=== PATIENT | female | born 1980 | race Hispanic/Latino ===

== ENCOUNTER 2018-08-15 15:31 | Outpatient (CLI) | payer BC ==
--- NOTE | 2018-08-15 16:09 | MMO ---
Bilateral MAMMO Bilat Screen [facility]. CLINICAL HISTORY: Patient is 38 years old and is seen for screening. The patient has no family history of breast cancer. The patient has no personal history of cancer. VIEWS: The views performed were: bilateral craniocaudal with tomosynthesis; bilateral mediolateral oblique with tomosynthesis; and left exaggerated craniocaudal. MAMMOGRAM FINDINGS: The breasts are heterogeneously dense, which could obscure a lesion on mammography. There are no suspicious masses, suspicious calcifications, or new areas of architectural distortion. IMPRESSION: THERE IS NO MAMMOGRAPHIC EVIDENCE OF MALIGNANCY. A ROUTINE FOLLOW-UP MAMMOGRAM IN 1 YEAR IS RECOMMENDED. THE RESULTS OF THIS EXAM WERE SENT TO THE PATIENT. ACR BI-RADS Category 1 - Negative MAMMOGRAPHY NOTE: 1. A negative mammogram report should not delay a biopsy if a dominant of clinically suspicious mass is present. 2. Approximately 10% to 15% of breast cancers are not detected by mammography. 3. Adenosis and dense breasts may obscure an underlying neoplasm.
== END 2018-08-15 15:32 | disposition home or self-care (01) ==
LOC: BICMAMMO 15:31
PROVIDERS: ATTEND Physician Assistant
DX: Z12.31 Encounter for screening mammogram for malignant neoplasm of breast (principal)
CPT/HCPCS: 77063; 77067

== ENCOUNTER 2020-10-02 09:01 | Outpatient (CLI) | payer BC | END 2020-10-02 09:02 | disposition home or self-care (01) | LOC: BICMAMMO 09:01 | PROVIDERS: ATTEND Physician Assistant | DX: Z12.31 Encounter for screening mammogram for malignant neoplasm of breast (principal) | CPT/HCPCS: 77063; 77067 ==

== ENCOUNTER 2020-12-27 08:17 | Inpatient (IN) | payer BC ==
[2020-12-27] MEDS ORDERED: Ondansetron PF 4 MG/2 ML Vial ONE (08:50)
[2020-12-27] MEDS ORDERED: Fentanyl 100 MCG/2 ML VIAL ONE (08:50)
[2020-12-27 09:32] LABS: #Basophils 0.1 thou/uL (0.0-0.2); #Eosinphils 0.1 thou/uL (0.0-0.7); #Lymphocytes 3.1 thou/uL (1.20-3.40); #Monocytes 0.8 thou/uL (0.11-0.59); #Neutrophils 6.3 thou/uL (1.40-6.50); %Basophils 0.9 % (0.0-1.0); %Eosinophils 0.8 % (0.0-10.0); %Lymphocytes 29.7 % (21.0-51.0); %Monocytes 7.3 % (0.0-10.0); %Neutrophils 61.4 % (42.0-75.0); Hemoglobin 14.1 g/dL (12.0-16.0); Mean Corpuscular HGB CONC 33.4 g/dL (32.0-36.0); Mean Corpuscular Hemoglobin 28.6 pg (27.0-31.0); Mean Corpuscular Volume 85.6 fL (78.0-98.0); Mean Platelet Volume 7.8 fL (7.4-10.4); Platelet Count 403 thou/uL (130-400); RBC Distribution Width 13.9 % (11.5-14.5); Red Blood Cell (RBC) Count 4.91 mill/uL (4.20-5.40); White Blood Cell (WBC) Count 10.3 thou/uL (4.8-10.8)
[2020-12-27 09:51] LABS: ALT (SGPT) 304 U/L (8-55); AST (SGOT) 233 U/L (5-34); Albumin 3.9 g/dL (3.5-5.0); Alkaline Phosphatase 356 U/L (40-110); Anion Gap 13 mmol/L (10-20); BUN (Urea Nitrogen) 9 mg/dL (7.0-18.7); Bilirubin, Total 1.9 mg/dL (0.2-1.2); Calc. Creatinine Clearance 0 mL/min (70-130); Calcium 8.9 mg/dL (7.8-10.44); Carbon Dioxide 21 mmol/L (22-29); Chloride 107 mmol/L (98-107); Globulin 3.3 g/dL (2.4-3.5); Glucose 122 mg/dL (70-105); Potassium 4.2 mmol/L (3.5-5.1); Protein, Total 7.2 g/dL (6.0-8.3); Sodium 137 mmol/L (136-145)
[2020-12-27] MEDS ORDERED: Morphine 4 MG/ML VIAL ONE ×2 (14:29→19:59)
[2020-12-27] MEDS ORDERED: diphenhydrAMINE 50 MG/ML VIAL ONE (19:06)
[2020-12-27] MEDS ORDERED: diphenhydrAMINE 50 MG/ML VIAL IVP PRN (19:38)
[2020-12-27] MEDS ORDERED: Morphine 4 MG/ML VIAL SLOW IVP PRN (21:40)
[2020-12-27] MEDS ORDERED: Morphine 2 MG/ML VIAL SLOW IVP PRN (21:40)
[2020-12-27] MEDS ORDERED: Ondansetron PF 4 MG/2 ML Vial IVP PRN (21:41)
[2020-12-27] MEDS ORDERED: Sodium Chloride 0.9% (PF) 10 ML VIAL FS PRN (21:45)
[2020-12-27] MEDS ORDERED: Piperacillin/Tazobactam 3.375 GM in Sodium Chloride 0.9% 100 ML IVPB SCH (22:00)
[2020-12-28] MEDS: D5 1/2 NS w/20 mEq KCL 1,000 ML IV SCH ×5 (00:11→19:17)
[2020-12-28] MEDS ORDERED: Piperacillin/Tazobactam 3.375 GM VIAL ONE (02:49)
[2020-12-28] MEDS ORDERED: EPINEPHrine 1 MG/ML AMP ONE (07:00)
[2020-12-28] MEDS ORDERED: Iothalamate Meglumine 60% 50 ML VIAL FS ONE (07:00)
[2020-12-28] MEDS ORDERED: Bupivacaine 0.25% HCL 30 ML VIAL ONE (07:00)
[2020-12-28] MEDS: Piperacillin/Tazobactam 3.375 GM in Sodium Chloride 0.9% 100 ML IVPB SCH ×5 (07:22→21:33)
[2020-12-28] MEDS ORDERED: Fentanyl 100 MCG/2 ML VIAL ONE (08:00)
[2020-12-28] MEDS ORDERED: Midazolam HCl 2 mg/2 ml Vial ONE (08:00)
[2020-12-28] MEDS ORDERED: Ketorolac Tromethamine 30 MG/ML VIAL ONE (08:07)
[2020-12-28] MEDS ORDERED: PROPOFOL 200 MG/20 ML VIAL ONE (08:07)
[2020-12-28] MEDS ORDERED: Rocuronium Bromide 10 MG/ML (10ML VIAL) ONE (08:07)
[2020-12-28] MEDS ORDERED: Lidocaine 1% PF 5 ML VIAL ONE (08:07)
[2020-12-28] MEDS ORDERED: PHENYLEPHRINE-NS 100 MCG/ML 10 ML SYRINGE ONE (08:07)
[2020-12-28] MEDS ORDERED: Dexamethasone 20 MG/5 ML VIAL ONE (08:07)
[2020-12-28] MEDS ORDERED: Ondansetron PF 4 MG/2 ML Vial ONE ×2 (08:07→09:35)
[2020-12-28] MEDS ORDERED: SUGAMMADEX SODIUM 200 MG/2 ML VIAL ONE (08:17)
[2020-12-28] MEDS ORDERED: Calcium Carbonate 500 MG ChewTAB PO PRN (09:02)
[2020-12-28] MEDS ORDERED: Mag-Al 1200 mg/1200 mg/30 ML UDCUP PO PRN (09:02)
[2020-12-28] MEDS ORDERED: Morphine 4 MG/ML VIAL SLOW IVP PRN (09:02)
[2020-12-28] MEDS ORDERED: Promethazine HCl 25 MG/ML VIAL IM PRN ×2 (09:02→09:09)
[2020-12-28] MEDS ORDERED: Dextrose 50% Abboject 50 ML SYRINGE SLOW IVP PRN (09:02)
[2020-12-28] MEDS ORDERED: hydrALAZINE 20 MG/ML VIAL SLOW IVP PRN (09:02)
[2020-12-28] MEDS ORDERED: Dextrose 5% in Water 1,000 ML IV PRN (09:02)
[2020-12-28] MEDS ORDERED: Ondansetron PF 4 MG/2 ML Vial IVP PRN (09:02)
[2020-12-28] MEDS ORDERED: HYDROcodone/Acetaminophen 10/325 mg Tablet PO PRN ×2 (09:02)
[2020-12-28] MEDS ORDERED: Morphine 2 MG/ML VIAL SLOW IVP PRN (09:02)
[2020-12-28] MEDS ORDERED: Promethazine HCl 25 MG/ML VIAL IVPB PRN (09:09)
[2020-12-28] MEDS ORDERED: Morphine Sulfate 2 MG/ML SYRINGE SLOW IVP PRN (09:09)
[2020-12-28] MEDS ORDERED: Ondansetron HCl/PF 4 MG/2 ML Vial IVP PRN (09:09)
[2020-12-28] MEDS ORDERED: HYDROmorphone 2 MG/ML VIAL SLOW IVP PRN (09:09)
[2020-12-28] MEDS ORDERED: Meperidine HCl/PF 25 MG/ML VIAL SLOW IVP PRN (09:09)
[2020-12-28] MEDS ORDERED: Promethazine HCl 25 MG/ML VIAL ONE (09:18)
[2020-12-28] MEDS: Pantoprazole 40 MG VIAL IVP SCH (10:22)
[2020-12-28 10:41] VITALS: BMI 39.8
[2020-12-28 11:08] LABS: ALT (SGPT) 240 U/L (8-55); AST (SGOT) 125 U/L (5-34); Albumin 3.8 g/dL (3.5-5.0); Alkaline Phosphatase 375 U/L (40-110); Anion Gap 11 mmol/L (10-20); BUN (Urea Nitrogen) 5 mg/dL (7.0-18.7); Bilirubin, Direct 2.3 mg/dL (0.1-0.3); Bilirubin, Total 3.1 mg/dL (0.2-1.2); Calc. Creatinine Clearance 169 mL/min (70-130); Calcium 9.1 mg/dL (7.8-10.44); Carbon Dioxide 27 mmol/L (22-29); Chloride 104 mmol/L (98-107); Glucose 114 mg/dL (70-105); Potassium 4.1 mmol/L (3.5-5.1); Protein, Total 6.9 g/dL (6.0-8.3); Sodium 138 mmol/L (136-145)
[2020-12-28] MEDS: Ketorolac Tromethamine 30 MG/ML VIAL IVP SCH ×2 (11:25→17:52)
[2020-12-28] MEDS ORDERED: Piperacillin/Tazobactam 3.375 GM in Sodium Chloride 0.9% 100 ML IVPB SCH (12:00)
[2020-12-28 12:36] LABS: %Eosinophils 1.6 % (0.0-10.0); %Lymphocytes 31.2 % (21.0-51.0); %Monocytes 6.3 % (0.0-10.0); %Neutrophils 60.7 % (42.0-75.0); Hemoglobin 13.2 g/dL (12.0-16.0); Mean Corpuscular HGB CONC 31.1 g/dL (32.0-36.0); Mean Corpuscular Hemoglobin 27.3 pg (27.0-31.0); Mean Corpuscular Volume 87.6 fL (78.0-98.0); Mean Platelet Volume 7.8 fL (7.4-10.4); Platelet Count 384 thou/uL (130-400); RBC Distribution Width 14.3 % (11.5-14.5); Red Blood Cell (RBC) Count 4.86 mill/uL (4.20-5.40); White Blood Cell (WBC) Count 7.4 thou/uL (4.8-10.8)
[2020-12-28 12:37] LABS: #Eosinphils 0.1 thou/uL (0.0-0.7); #Lymphocytes 2.3 thou/uL (1.20-3.40); #Monocytes 0.5 thou/uL (0.11-0.59); #Neutrophils 4.5 thou/uL (1.40-6.50); %Basophils 0.3 % (0.0-1.0)
[2020-12-28] MEDS ORDERED: valACYclovir 500 MG TAB PO SCH (16:00)
[2020-12-28 16:14] LABS: SARS-CoV-2 NAA Rapid Test Not Detected (NotDetected)
[2020-12-28] MEDS: Famotidine 20 MG TAB PO SCH (21:32)
[2020-12-28] MEDS: Famotidine/PF 20 mg/2ml Vial SLOW IVP SCH (23:10)
[2020-12-29] MEDS: Ketorolac Tromethamine 30 MG/ML VIAL IVP SCH ×2 (02:08→06:07)
[2020-12-29] MEDS: Piperacillin/Tazobactam 3.375 GM in Sodium Chloride 0.9% 100 ML IVPB SCH ×3 (02:09→12:09)
[2020-12-29] MEDS: D5 1/2 NS w/20 mEq KCL 1,000 ML IV SCH ×2 (06:08→12:10)
[2020-12-29 07:14] LABS: ALT (SGPT) 158 U/L (8-55); AST (SGOT) 67 U/L (5-34); Albumin 3.4 g/dL (3.5-5.0); Alkaline Phosphatase 281 U/L (40-110); Anion Gap 10 mmol/L (10-20); BUN (Urea Nitrogen) 9 mg/dL (7.0-18.7); Bilirubin, Total 0.9 mg/dL (0.2-1.2); Calc. Creatinine Clearance 166 mL/min (70-130); Calcium 8.8 mg/dL (7.8-10.44); Carbon Dioxide 27 mmol/L (22-29); Chloride 105 mmol/L (98-107); Globulin 2.8 g/dL (2.4-3.5); Glucose 111 mg/dL (70-105); Potassium 3.8 mmol/L (3.5-5.1); Protein, Total 6.2 g/dL (6.0-8.3); Sodium 138 mmol/L (136-145)
[2020-12-29 07:40] VITALS: BP 120/70; TEMP 98
[2020-12-29 08:34] LABS: Hemoglobin 11.7 g/dL (12.0-16.0); Mean Corpuscular HGB CONC 33.5 g/dL (32.0-36.0); Mean Corpuscular Hemoglobin 29.1 pg (27.0-31.0); Mean Corpuscular Volume 86.9 fL (78.0-98.0); Mean Platelet Volume 8.6 fL (7.4-10.4); Platelet Count 342 thou/uL (130-400); RBC Distribution Width 14.4 % (11.5-14.5); White Blood Cell (WBC) Count 11.8 thou/uL (4.8-10.8)
[2020-12-29] MEDS: Famotidine/PF 20 mg/2ml Vial SLOW IVP SCH (08:43)
[2020-12-29] MEDS: Pantoprazole 40 MG VIAL IVP SCH (08:43)
[2020-12-29] MEDS: Famotidine 20 MG TAB PO SCH (08:43)
[2020-12-29] MEDS ORDERED: Enoxaparin Sodium 40 MG/0.4 ML SYRINGE SC SCH (09:00)
[2020-12-29] MEDS ORDERED: valACYclovir 500 MG TAB PO SCH (09:00)
[2020-12-29 09:42] LABS: Lymphocytes 34 % (21-51); MDiff Complete? YES; Monocytes 6 % (0-10); Neutrophil 59 % (42-75); Platelet Morphology Comment Appears Adequate
== END 2020-12-29 11:45 | disposition home or self-care (01) | DRG 417 ==
LOC: ERS 08:17 → SURG B 19:30
PROVIDERS: ADMIT Surgery; ATTEND Surgery
PROC: 0FT44ZZ Resection of Gallbladder, Percutaneous Endoscopic Approach (ICD-10-PCS; principal; 2020-12-28)
PROC: BF131ZZ Fluoroscopy of Gallbladder and Bile Ducts using Low Osmolar Contrast (ICD-10-PCS; 2020-12-28)
DX: K80.00 Calculus of gallbladder with acute cholecystitis without obstruction (principal); K85.10 Biliary acute pancreatitis without necrosis or infection; Z20.822 Contact with and (suspected) exposure to COVID-19; E66.9 Obesity, unspecified; F17.210 Nicotine dependence, cigarettes, uncomplicated; Z68.39 Body mass index [BMI] 39.0-39.9, adult; Z98.890 Other specified postprocedural states
CPT/HCPCS: 36415; 47532; 76705; 80048; 80053; 80076; 83690; 85025; 88304; 96374; 96375; C9113; J0171; J0690; J1100; J1200; J1610; J1650; J1885; J2250; J2270; J2405; J2543; J2550; J2704; J3010; J3480; J3490; Q9961; S0020; U0002

== ENCOUNTER → 2021-07-15 | Day surgery (SDC) | payer BC | LOC: BICULT 12:06 | PROVIDERS: ATTEND Physician Assistant | PROC: 0H9T3ZX Drainage of Right Breast, Percutaneous Approach, Diagnostic (ICD-10-PCS; principal; 2021-07-15) | DX: D24.1 Benign neoplasm of right breast (principal) | CPT/HCPCS: 19083; 88305 ==

== ENCOUNTER 2022-07-22 13:00 | Emergency (ER) | payer BC ==
[2022-07-22] MEDS ORDERED: Ibuprofen 800 MG TAB ONE (14:49)
[2022-07-22] MEDS ORDERED: Orphenadrine Citrate 60 MG/2 ML VIAL ONE (14:49)
[2022-07-22] MEDS ORDERED: Morphine 4 MG/ML VIAL ONE (14:49)
== END 2022-07-22 16:50 | disposition home or self-care (01) ==
LOC: ERS 13:00
DX: M51.36 Other intervertebral disc degeneration, lumbar region (principal); F17.210 Nicotine dependence, cigarettes, uncomplicated
CPT/HCPCS: 72131; 96372; J2270; J2360

== ENCOUNTER 2022-11-25 08:52 | Outpatient (CLI) | payer BC, OTHER | END 2022-11-25 08:53 | disposition home or self-care (01) | LOC: BICMAMMO 08:52 | PROVIDERS: ATTEND Physician Assistant | DX: Z12.31 Encounter for screening mammogram for malignant neoplasm of breast (principal); N63.20 Unspecified lump in the left breast, unspecified quadrant; Z91.89 Other specified personal risk factors, not elsewhere classified | CPT/HCPCS: 77063; 77067 ==

== ENCOUNTER 2022-12-02 09:14 | Outpatient (CLI) | payer OTHER | END 2022-12-02 09:15 | disposition home or self-care (01) | LOC: BICMAMMO 09:14 | PROVIDERS: ATTEND Physician Assistant | DX: N60.12 Diffuse cystic mastopathy of left breast (principal) | CPT/HCPCS: G0279 ==